=== PATIENT | male | born 1960 | race African-American/Black ===

== ENCOUNTER 2020-07-04 17:27 | Outpatient (REF) | payer OTHER, SELFPAY ==
[2020-07-10 01:56] LABS: Testosterone, Total 469 ng/dL (250-1100)
== END 2020-07-04 17:28 | disposition home or self-care (01) ==
LOC: HO.LAB 17:27
PROVIDERS: Visit Provider Urology
DX: E29.1 Testicular hypofunction (principal)
CPT/HCPCS: 84153; 84403

== ENCOUNTER → 2020-09-30 15:01 | Outpatient (BNVA) | payer OTHER, SELFPAY | PROVIDERS: PCP Internal Medicine; Visit Provider Urology ==

== ENCOUNTER 2022-12-03 11:15 | Outpatient (REF) | payer OTHER, SELFPAY ==
[2022-12-03 13:13] LABS: Prostate Specific Antigen 3.64 ng/mL (<0.05-4.0)
== END 2022-12-03 11:16 | disposition home or self-care (01) ==
LOC: HO.LAB 11:15
PROVIDERS: PCP Internal Medicine; Visit Provider Urology
DX: Z12.5 Encounter for screening for malignant neoplasm of prostate (principal); N52.9 Male erectile dysfunction, unspecified
CPT/HCPCS: 36415; 84153

== ENCOUNTER 2022-12-08 15:32 | Outpatient (REF) | payer OTHER, SELFPAY ==
[2022-12-08 17:56] LABS: Prostate Specific Antigen 3.27 ng/mL (<0.05-4.0)
[2022-12-10 04:34] LABS: Follicle Stimulating Hormone 5.4 mIU/mL (1.6-8.0); Lutenizing Hormone 6.1 mIU/mL (1.6-15.2)
[2022-12-14 14:24] LABS: Testosterone, Free 78.5 pg/mL (35.0-155.0); Testosterone, Total 473 ng/dL (250-1100)
== END 2022-12-08 15:33 | disposition home or self-care (01) ==
LOC: HO.LAB 15:32
PROVIDERS: PCP Internal Medicine; Visit Provider Urology
DX: Z12.5 Encounter for screening for malignant neoplasm of prostate (principal); E11.69 Type 2 diabetes mellitus with other specified complication; N52.1 Erectile dysfunction due to diseases classified elsewhere; E29.1 Testicular hypofunction
CPT/HCPCS: 36415; 83001; 83002; 84153; 84402; 84403

== ENCOUNTER 2022-12-28 09:40 | Outpatient (REF) | payer OTHER, SELFPAY ==
[2022-12-30 00:29] LABS: Follicle Stimulating Hormone 6.5 mIU/mL (1.6-8.0); Lutenizing Hormone 5.6 mIU/mL (1.6-15.2)
[2023-01-03 13:59] LABS: Testosterone, Total 517 ng/dL (250-1100)
== END 2022-12-28 09:41 | disposition home or self-care (01) ==
LOC: HO.LAB 09:40
PROVIDERS: Visit Provider Urology
DX: E11.69 Type 2 diabetes mellitus with other specified complication (principal); N52.1 Erectile dysfunction due to diseases classified elsewhere; E29.1 Testicular hypofunction
CPT/HCPCS: 36415; 83001; 83002; 84402; 84403

== ENCOUNTER → 2023-01-19 11:09 | Outpatient (BNVA) | payer OTHER, SELFPAY | PROVIDERS: PCP Internal Medicine; Visit Provider Urology ==

== ENCOUNTER 2023-07-19 07:36 | Outpatient (REF) | payer OTHER, SELFPAY ==
[2023-07-25 11:20] LABS: Testosterone, Free 82.2 pg/mL (35.0-155.0); Testosterone, Total 571 ng/dL (250-1100)
== END 2023-07-19 07:37 | disposition home or self-care (01) ==
LOC: HO.LAB 07:36
PROVIDERS: PCP Internal Medicine; Visit Provider Urology
DX: E29.1 Testicular hypofunction (principal)
CPT/HCPCS: 36415; 84402; 84403

== ENCOUNTER 2023-07-29 14:28 | Outpatient (AMB) | payer OTHER, SELFPAY ==
--- NOTE | 2023-07-29 14:29 | A.OFFVIS_ITS ---
Intake Intake Visit Reasons: 6m/Testo(SET) Intake Note: Patient is Present for Telephone Follow Up Lab Urology Med:Tadalafil, Testosterone Antibiotic Allergy: None Blood Thinner: None Allergies No Known Allergies Allergy (Verified 01/19/23 11:12) Medication List - Last Reconciled 07/29/23 by Flynn Goodwin MD alprostadil ([place]) 1,000 mcg intra-urethral ONCE tadalafil 5 mg PO DAILY 90 days testosterone 4 pumps topical DAILY 30 days HPI HPI Comments History of Present Illness Details Jenaro is a pleasant male. He is a patient of . He seen for the following urologic conditions - hypogonadism male - erectile dysfunction Telemedicine Evaluation 15 min Consultation [facility] Sushila Video attempted Effective T levels maintained on tadalafil Unable to get Meuse Bump up to 40 mg p.r.n. Will try to give Meuse 3 month follow-up Erectile dysfunction Baseline using TriMix injections Previously had considered Meuse Hypogonadism Prior ongstanding use of [facility] - 01/02 T 520 P 3.3 LH 5.6, 08/04 T 570 PFSH Medical History Diabetes mellitus Erectile dysfunction Hypogonadism in male Review of Systems Const All systems reviewed & are unremarkable except as noted in HPI and below Reports no additional complaints Resp Reports no additional complaints GI Reports no additional complaints Reports as per HPI Musc Reports no additional complaints Physical Exam Telemedicine evaluation Appropriate responses Regular breathing rate and rhythm HEENT Head: Yes normal to inspection Ears: hearing grossly normal bilaterally Eyes General: appearance normal, both eyes and all related structures Neck Neck: Yes normal visual inspection Chest Chest palpation & inspection: normal inspection of the chest Resp Effort & Inspection: normal respiratory effort and able to speak in complete sentences Assessment & Plan Assessment & Plan (1) Hypogonadism in male: Code(s): E29.1 - Testicular hypofunction (2) Erectile dysfunction: Code(s): N52.9 - Male erectile dysfunction, unspecified Qualifiers: Erectile dysfunction type: vasculogenic 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 Qualified Code(s): N52.03 - Combined arterial insufficiency and corporo-venous occlusive erectile dysfunction Plan Three month follow-up Medications: New tadalafil On demand medication take 60 minutes before intended activity 20 mg PO ONCE 30 days PRN 30 tabs 0RF sexual activity E11.69 - Type 2 diabetes mellitus with other specified complication, E29.1 - Testicular hypofunction, N52.1 - Erectile dysfunction due to diseases classified elsewhere Changed From tadalafil BIN PCN Group [facility] DR33 [id number] 5 mg PO DAILY 90 days 90 tabs 1RF sexual activity N52.9 - Male erectile dysfunction, unspecified To tadalafil 5 mg PO DAILY 90 days 90 tabs 1RF sexual activity N52.9 - Male erectile dysfunction, unspecified Patient Instructions: Imaging studies, laboratory and physical exam results were discussed and reviewed in detail. No major barriers to patient understanding were identified. An opportunity to ask questions regarding the treatment plan was provided. All questions were answered. The patient expressed understanding and agreement with the above treatment plan. The patient is aware they should contact our office by phone for worsening of their current condition or the appearance of new urologic symptoms. Compliance is encouraged with any medications and followup testing that is ordered. It is a privilege to participate in the urologic care of your patient. If you have any questions or concerns regarding treatment for the above conditions, or other urologic issues, please do not hesitate to contact me. The office telephone contact is [phone]. This note is constructed using voice recognition software. While every effort has been made to ensure accuracy supply room clerk errors may have been included. Yours sincerely, Dr Flynn Goodwin MD, [facility] - Urology Providers of Expert, Compassionate Care for the Genitourinary System Telehealth Telehealth Location of provider rendering services: practice address Location of patient: address on file Patient Identification confirmed using: Name, : Yes Telehealth method: video Patient verbally consented to treatment: Yes Patient verbally consented to billing insurance company: Yes Patient informed of any privacy concerns related to visit: Yes Coding Level of Care Code Tele Est Pt Level 4 (06655) Diagnoses Hypogonadism in male E29.1 Combined arterial insufficiency and corporo-venous occlusive erectile dysfunction N52.03 Erectile dysfunction type: vasculogenic Vasculogenic erectile dysfunction type: due to combined arterial insufficiency and corporo-venous occlusion
== END 2023-07-29 15:02 | disposition home or self-care (01) ==
LOC: HO.HUSH 14:28
PROVIDERS: PCP Internal Medicine; Visit Provider Urology
DX: E29.1 Testicular hypofunction (principal); N52.03 Combined arterial insufficiency and corporo-venous occlusive erectile dysfunction
CPT/HCPCS: 99213

== ENCOUNTER → 2023-07-29 14:28 | Outpatient (BNVA) | payer OTHER, SELFPAY | PROVIDERS: PCP Internal Medicine; Visit Provider Urology ==

== ENCOUNTER 2023-11-08 13:54 | Outpatient (AMB) | payer OTHER, SELFPAY ==
--- NOTE | 2023-11-08 14:01 | A.OFFVIS_ITS ---
Intake Intake Visit Reasons: 3M (Erectile Dys)Confirmed Intake Note: Patient is Present for Follow Up Urology Medication: Tadalafil, testosterone Antibiotic Allergies: None Blood Thinners: None Confirmed Pharmacy: [facility] Allergies No Known Allergies Allergy (Verified 11/08/23 14:06) HPI HPI Comments History of Present Illness0 Details Jenaro is a pleasant male. He is a patient of . He seen for the following urologic conditions - hypogonadism male - erectile dysfunction Effective T levels maintained on tadalafil Unable to get Meuse Bump up to 40 mg p.r.n. Erectile dysfunction Baseline using TriMix injections Previously had considered Meuse Hypogonadism Prior ongstanding use of [facility] - 01/02 T 520 P 3.3 LH 5.6, 08/04 T 570 PFSH Medical History Diabetes mellitus Erectile dysfunction Hypogonadism in male Review of Systems Const Denies chills and Denies fever(s) Card Reports no additional complaints and Denies syncope Resp Denies cough GI Denies abdominal pain and Denies heartburn Reports as per HPI and Denies change in libido Neuro Denies syncope Psych Denies change in libido Endo Denies change in libido Physical Exam Const General: cooperative, healthy appearing, comfortable and no acute distress Orientation/consciousness: patient oriented x3 HEENT Face and sinus: Yes normal facial exam Mouth: moist mucous membranes Neck Neck: Yes normal visual inspection, Yes full ROM and Yes trachea midline Chest Chest palpation & inspection: normal inspection of the chest Resp Effort & Inspection: normal respiratory effort, able to speak in complete sentences and no respiratory distress GI Inspection: Yes normal to inspection Back/Spine/Pelvis Cervical Spine: normal cervical lordosis Thoracic/Lumbar Spine: thoracic and lumbar spine normal to inspection Skin General skin exam: no rashes or lesions noted Neuro General: patient oriented x3, gait normal, tone normal and moves all extremities Extrem General: Yes normal to inspection and Yes capillary refill normal Assessment & Plan Assessment & Plan (1) Erectile dysfunction: Code(s): N52.9 - Male erectile dysfunction, unspecified Qualifiers: Erectile dysfunction type: vasculogenic Vasculogenic erectile dysfunction 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 call Patient Instructions: Imaging studies, laboratory and physical exam results were discussed and reviewed in detail. No major barriers to patient understanding were identified. An opportunity to ask questions regarding the treatment plan was provided. All questions were answered. The patient expressed understanding and agreement with the above treatment plan. The patient is aware they should contact our office by phone for worsening of their current condition or the appearance of new urologic symptoms. Compliance is encouraged with any medications and followup testing that is ordered. It is a privilege to participate in the urologic care of your patient. If you have any questions or concerns regarding treatment for the above conditions, or other urologic issues, please do not hesitate to contact me. The office telephone contact is [phone]. This note is constructed using voice recognition software. While every effort has been made to ensure accuracy environmental health specialist errors may have been included. 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
== END 2023-11-08 14:56 | disposition home or self-care (01) ==
PROVIDERS: PCP Internal Medicine; Visit Provider Urology
DX: N52.03 Combined arterial insufficiency and corporo-venous occlusive erectile dysfunction (principal); E29.1 Testicular hypofunction
CPT/HCPCS: 99213

== ENCOUNTER → 2023-11-08 13:54 | Outpatient (BNVA) | payer OTHER, SELFPAY | PROVIDERS: PCP Internal Medicine; Visit Provider Urology ==